=== PATIENT | male | born 1940 | race Caucasian/White ===

== ENCOUNTER 2016-11-12 13:58 | Inpatient (IN) | payer MEDICARE, OTHER ==
[~2016-11-12] VITALS: Ht 177.8 cm; Wt 103.8 kg
[2016-11-15] MEDS ORDERED: ATEN25TA PO (13:16)
[2016-11-15] MEDS ORDERED: VITA100064 PO (13:16)
[2016-11-15] MEDS ORDERED: NAPR220T95 PO (13:16)
[2016-11-15] MEDS ORDERED: MAGN250T2 PO (13:16)
[2016-11-15] MEDS ORDERED: METF500T PO (13:16)
--- NOTE | 2016-11-16 18:49 | MH ---
cc: KOLEJOSEFINAQUE DATE OF ADMISSION: 11/24/2016 ADMITTING DIAGNOSIS: Osteoarthritis of the right knee, varus deformity right knee and pain of the right knee. HISTORY The patient is a 76-year-old white male who has experienced at least a 3-year history of pain involving his right knee. He had noted the gradual onset of his symptoms unrelated to injury or unusual activity. He had been quite aware of a cracking and popping sensation of the right knee with intermittent radiation, proximal and distal orientation about his extremity. He had been conforming to an exercise program which included swimming, riding a bicycle and exercising at the gym which had been associated with ongoing pain of his right knee with a cramping sensation of his leg. He was taking ibuprofen for pain management with minimal benefit being noted. He had undergone initial evaluation with his primary care physician at which time x-ray studies did identify some degree of osteoarthritis about the knee joint. The patient was originally evaluated by the undersigned physician for his symptoms involving his right knee in December of 2015. At that time his x-ray studies did reveal degenerative changes especially involving the medial compartment. Findings and treatment options were reviewed. The patient was prescribed diclofenac as part of his continued conservative modalities. He was followed on an outpatient basis thereafter during which time he did note lingering symptoms about the right knee that tended to result in some degree of incapacitation with regards to his daily routine. He returned to the office in July of this year reporting that he was having ongoing pain about his right knee, for which he had received a cortisone injection in the past that did not prove to be of any benefit. He was now taking Aleve for pain management and wearing a support. His current x-ray studies revealed obvious degenerative changes throughout the medial compartment with near [id number] apposition associated with a varus deformity of approximately 10 degrees magnitude. Findings and treatment options were reviewed with the patient. At that time he did agree to a current course of therapy intervention for which a referral was made, and again was prescribed diclofenac 75 milligrams twice daily. Unfortunately he continued with pain about his right knee and returned to the office more recently indicating that he felt he had reached a point in time and was ready to proceed with a more definitive course of treatment. The involvement of total knee arthroplasty was outlined in detail with emphasis being made that the decision to proceed with surgery would be left entirely to the patient's discretion. Henry readily admitted that he had arrived at that point in time and requested to be scheduled for such treatment. In compliance with his wishes, he is currently being admitted in order the at total hip replacement be completed. PAST MEDICAL HISTORY, HOSPITALIZATIONS AND SURGERIES: 1. Bilateral carpal tunnel release. 2. Left inguinal herniorrhaphy. 3. Left reverse shoulder arthroplasty. 4. Left blepharoplasty. Medical illnesses: 1. Hypertension for which he takes atenolol 50 milligrams daily. 2. He was also recently diagnosed as being a borderline diabetic for which he has been prescribed metformin 500 milligrams twice daily. ALLERGIES: The patient indicates a possible drug allergy to Percocet which has been associated with some mild GI irritation. He has tolerated Vicodin without any adverse side effects prescribed. REVIEW OF SYSTEMS: He wears glasses for reading purposes. No headache, seizure or syncope. No sinus congestion or epistaxis. Auditory acuity intact. No tinnitus. No bleeding gums or dysphagia, no cough, shortness of breath, upper respiratory infection, pneumonia or tuberculosis. No angina or heart disease. He is medically managed for hypertension. His appetite is good. Bowel movements regular. No hepatitis, gallbladder disease, ulcers or hemorrhoids. No urinary tract infection. No kidney stones, no prostate disease. No history of fractures. 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 No psychiatric illness. His remaining review of systems is unremarkable and noncontributory. FAMILY HISTORY 7 years, this being a second marriage, 57 years of age indicated to be in good health. He has one daughter who has a history of COPD but otherwise seems to doing reasonably well. His family history is positive for hypertension, diabetes, heart disease, multiple myeloma and liver cancer. SOCIAL HISTORY The patient is employed with [employer]. He completed a postgraduate degree. He denies active use of tobacco for at least 47 years but had been less than a one-pack per day user for 10 years prior to that time. Ethanol consumption on a social basis to a moderate degree. PHYSICAL EXAMINATION Height 5 feet 10 inches, weight 215 pounds. An alert, oriented and responsive 76-year-old white male who sits quietly upon the examination table with no apparent distress. Head, ears, eyes, nose and throat: Pupils are equally round and reactive to light. Trace corneal arcus. Extraocular movements full. External nares clear. External auditory canals clear. Dental intact. Mucous membranes pink and moist. Pharynx clear. Neck: Supple. Active range of motion without significant pain. Carotid pulse palpable bilaterally. Trachea midline. Thyroid without enlargement. Lungs: Clear to auscultation and percussion. No CVA tenderness. No discomfort throughout the dorsal lumbar spine. Heart: Regular rhythm. No murmur or gallop. Abdomen: Soft, nontender. Bowel sounds present. Rectal: Per primary care physician. Extremities: Right knee, and obvious varus deformity with medial joint line tenderness. Apprehension and compression sign negative. Limited mobility in the 90 to 100 degree range of flexion with crepitation elicited. No collateral ligamentous instability. Mckayla test and drawer sign negative. Pivot shift and Geraldine sign positive for medial compartment pain. Straight-leg raising negative at 80 degrees. Distal sensory grossly intact. Mild antalgic gait. Neurologic: Cranial nerves II-XII grossly intact. IMPRESSION Osteoarthritis right knee, varus deformity right knee, pain right knee. PLAN Right total knee arthroplasty. The nature of the planned surgical procedure, the potential complications and risks associated, the expectations of surgery and the consent form have been thoroughly reviewed with the patient prior to his admission to the hospital. Henry has indicated his full understanding regarding all of the above and given consent to proceed with treatment as outlined. Medical evaluation and clearance for surgery will be completed by his primary care physician, Dr. Beaulieu. MD KALEY Doherty/ERICK /5:11 PM /5:41 PM
[2016-11-24] MEDS ORDERED: CHLORHEXIDINE GLUCONATE 2 % 1 PACK (2 CLOTHS) TOPICAL PRN (06:00)
[2016-11-24] MEDS ORDERED: POVIDONE IODINE 7.5% SCRUB 118 ML BOTTLE TOPICAL SCH (06:00)
[2016-11-24] MEDS ORDERED: POVIDONE IODINE 5% (ANTISEPSIS KIT) 4 APPLICATIONS EACH NARE PRN (06:00)
[2016-11-24] MEDS ORDERED: METOPROLOL TARTRATE 25 MG TAB PO PRN (06:00)
[2016-11-24] MEDS ORDERED: SODIUM CHLORID 0.9% 500 ML IV PRN (06:00)
[2016-11-24] MEDS ORDERED: ceFAZolin 2 GM PREMIX 50 ML IV SCH (06:00)
[2016-11-24] MEDS ORDERED: INSULIN HUMAN REGULAR 1,000 UNITS/10 ML VIAL SQ PRN (06:00)
[2016-11-24] MEDS ORDERED: LACTATED RINGER'S 1000 ML IV PRN (06:00)
[2016-11-24 06:02] VITALS: BP 134/82; PULSE 71; RESP 16; TEMP 99.1; O2SAT 97
[2016-11-24] MEDS ORDERED: ceFAZolin INJ 1,000 MG VIAL ONE (06:32)
[2016-11-24] MEDS ORDERED: MIDAZOLAM HCL 5 MG/5 ML VIAL ONE (06:36)
[2016-11-24] MEDS ORDERED: fentaNYL CITRATE 250 MCG/5 ML AMP ONE (06:36)
[2016-11-24] MEDS ORDERED: ACETAMINOPHEN 1000 MG/100 ML VIAL IV ONE (06:36)
[2016-11-24] MEDS ORDERED: DEXAMETHASONE SOD PHOS 4 MG/ML VIAL ONE (06:37)
[2016-11-24] MEDS ORDERED: FAMOTIDINE 20 MG/2 ML VIAL ONE (06:37)
[2016-11-24] MEDS ORDERED: TRANEXAMIC ACID 1 GM PRIOR TO PROCEDURE IV SCH ×2 (07:00)
[2016-11-24] MEDS ORDERED: BUPIVACAINE HCL PF 0.5% 30 ML VIAL NERV BLOCK ONE (08:35)
[2016-11-24] MEDS ORDERED: Post-op Orders (for Pharmacy) MISC XX ONE (09:23)
[2016-11-24] MEDS ORDERED: DO NOT ADM ANY ANTICOAGULANT DRUGS PRN (09:25)
[2016-11-24] MEDS ORDERED: *MEPERIDINE 25 MG INJ VIAL PERIprocedural Use ONLY ONE (09:42)
[2016-11-24] MEDS ORDERED: SODIUM CHLORIDE 0.9% FLUSH 10 ML FLUSH IV FLUSH PRN (09:45)
[2016-11-24] MEDS ORDERED: DOCUSATE SODIUM 100 MG CAP PO PRN (09:45)
[2016-11-24] MEDS ORDERED: ZOLPIDEM TARTRATE 5 MG TAB PO PRN (09:45)
[2016-11-24] MEDS ORDERED: MISCELLANEOUS PHARMACY INFORMATION XX ONE (09:45)
[2016-11-24] MEDS ORDERED: TRANEXAMIC ACID INJ 1,000 MG in SODIUM CHLORIDE 0.9% INJ 100 ML IV SCH (09:45)
[2016-11-24] MEDS ORDERED: NALOXONE HCL 0.4 MG/ML AMP IV PRN (09:45)
[2016-11-24] MEDS ORDERED: ACETAMINOPHEN/HYDROcodone 325 MG/5 MG TAB PO PRN (09:45)
[2016-11-24] MEDS ORDERED: ONDANSETRON HCL 4 MG/2 ML VIAL IVP PRN (09:45)
[2016-11-24] MEDS ORDERED: ACETAMINOPHEN 325 MG TAB PO PRN (09:45)
[2016-11-24] MEDS ORDERED: diphenhydrAMINE HCL 25 MG CAP PO PRN (09:45)
--- NOTE | 2016-11-24 09:53 | MP ---
cc: QUE GONZALEZ MD DATE OF SURGERY 11/24/2016 PREOPERATIVE DIAGNOSIS Osteoarthritis of the right knee, varus deformity right knee and pain of the right knee. POSTOPERATIVE DIAGNOSIS Osteoarthritis of the right knee, varus deformity right knee and pain of the right knee. PROCEDURE Right total knee arthroplasty SURGEON Que Gonzalez MD ANESTHESIA General endotracheal INDICATIONS A 76-year-old white male with a three year history of right knee pain of gradual onset unrelated to injury or unusual activity. He had been aware of a cracking and popping sensation of his right knee with intermittent radiation into the proximal and distal aspect of his extremity. He had been conforming to exercise activities which included swimming, riding a bicycle and exercising at the gym all of which has been associated with ongoing pain about his right knee with a cramping sensation as part of his symptoms. He had been taking ibuprofen for pain management with minimal benefit described. He had undergone initial evaluation with his primary care physician with x-ray studies identifying osteoarthritic changes about his right knee. He was later evaluated by the undersigned physician in December of this past year and at that time his x-ray studies did reveal degenerative changes being most pronounced about the medial compartment. Findings and treatment options were reviewed with the patient at that time and he was prescribed Diclofenac and continued with conservative modalities while being followed on outpatient basis. During this interval of time, he noted lingering symptoms about his right knee that tended to result in some degree of incapacitation regarding his daily routine. He returned to the office in July of this year reporting ongoing pain about his right knee for which he has received a cortisone injection in the past that did not prove to be of any appreciable benefit. He had began taking Aleve for pain management and wearing an orthotic support. His more current x-ray studies revealed obvious degenerative changes throughout the medial compartment with near reak-mt-[id number] apposition associated with a varus deformity of approximately 10 degrees magnitude. Findings and treatment options were again reviewed at that time. The patient was referred for a current course of therapy intervention, unfortunately, his knee symptoms persisted and he returned to the office more recently indicating that he felt he was in need of a more definitive course of treatment. The involvement of total knee arthroplasty was outlined in detail with emphasis being made that the decision to proceed with surgery would be left entirely to the patient's discretion. The patient readily admitted that he was at that point in time where he was ready to proceed accordingly and in compliance with his wishes he was scheduled for admission at this time in order that total knee replacement be completed. FORMAT Following the induction of satisfactory general anesthesia by endotracheal intubation as completed per the department of anesthesia, a tourniquet was established around the proximal portion of the right lower extremity. The extremity proper was isolated with a U-drape thereafter being prepped with Betadine solution and draped into a sterile field in the routine manner. Prior to initiation of the actual procedure, the standard time-out protocol was completed. All parameters were appropriately addressed and confirmed by operating room personnel. The extremity was elevated for approximately one minute and the tourniquet thus inflated to 250 mmHg pressure. A sharp skin incision was initiated midline over the anterior aspect of the knee and developed underlying subcutaneous tissue with hemostasis maintained by electrocautery. By deepening dissection, the anterior capsule was exposed. A medial capsulotomy completed and the patella subluxed in a lateral orientation. Examination of the joint space revealed severe degenerative changes throughout the medial compartment with complete erosion of articular cartilage and underlying subchondral bone exposed. The degenerative process extended into the patellofemoral articulation. A complex displaced tear of the medial meniscus was also identified. The articular surface of the patella was resected. The three holed guide was utilized for establishing post holes. Medial and lateral meniscus structures were sharply excised as was the anterior cruciate ligament. A centering hole was placed in the distal aspect of the femur allowing positioning of the intramedullary guide. The distal femoral cutting jig was attached and the distal femur resected. AP measurement noted 75 mm sizing to be appropriate. The matching cutting block was positioned. Anterior, posterior and chamfer cuts were completed. The tibial plateau was thereafter subluxed in an anterior orientation allowing positioning of the extramedullary guide. The tibial plateau was resected and measured with 83 mm sizing determined to be satisfactory. A trial reduction followed utilizing a 75 mm anatomic femoral component, an 83 mm tibial base with a 10 mm bearing insert. The knee was readily brought to full extension. There was no laxity to varus/valgus stress at both zero and 90 degrees flexed posture. Orientation was confirmed as being appropriate with measurement of the pelvic guide through the mechanical axis of the knee. A trial reduction followed utilizing a 37 mm standard patellar button. Once again, good tracking was demonstrated with no tendency toward subluxation. All trial components were thereafter removed. The remaining portion of the proximal tibia was prepared for insertion of the permanent component. The joint space was thoroughly lavaged with pulsating antibiotic solution. Hemostasis maintained by electrocautery. An autogenous bone plug was inserted into the distal femoral guide hole and thereafter a preparation of cobalt bone cement was utilized in inserting knee components in a sequential fashion which included an 83 mm fixed cruciate tibial plate to which a 10 mm Vanguard tibial bearing insert was secured with locking mendez. The 75 mm Vanguard femoral component was firmly seated onto the distal femur, excess cement being removed, the knee was brought to full extension and thereafter the 37 mm standard three post patellar button was attached and maintained in place with patellar clamp while cement hardening was completed. Final range of motion assessment noted good tracking and stability throughout the knee. Irrigation was repeated with hemostasis maintained. Autovac drain tubes were inserted through superior stab wounds. The capsule was repaired with 0 Vicryl suture. The remaining portion of the wound was closed in layers in the routine manner, skin margins being reapproximated with a running subcuticular 3-0 Vicryl suture over which Steri-Strips were applied. Xeroform gauze and a bulky dry sterile dressing were placed. The tourniquet was deflated after 54 minutes of tourniquet time. The extremity being supported in a canvas knee splint, anesthesia was discontinued, he was thereafter transferred to a hospital bed and returned to the recovery room in satisfactory condition having tolerated his operative procedure well. Estimated blood loss approximately 75-100 cc. 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 MD KALEY Doherty/AIDA /9:26 AM /9:37 AM
[2016-11-24] MEDS ORDERED: ePHEDrine/NS 25 MG/5 ML SYR IV ONE (09:56)
[2016-11-24] MEDS ORDERED: PROPOFOL 200 MG/20 ML AMP IV ONE (09:56)
[2016-11-24] MEDS ORDERED: PHENYLEPH/NS 1000 MCG/10 ML SYR IV ONE (09:57)
[2016-11-24] MEDS ORDERED: LACTATED RINGER'S 1000 ML INJ 1,000 ML IV ONE (09:57)
[2016-11-24] MEDS ORDERED: ONDANSETRON HCL 4 MG/2 ML VIAL IV PUSH ONE (09:57)
[2016-11-24] MEDS: DEXT 5%-NACL 0.45% 1000 ML INJ 1,000 ML IV SCH ×3 (10:00→19:30)
[2016-11-24] MEDS ORDERED: TRANEXAMIC ACID 1 GM POST-OP IV SCH ×2 (10:00)
[2016-11-24] MEDS ORDERED: *morphine SULFATE 8 MG/ML PERIprocedure ONLY ONE (10:07)
[2016-11-24] MEDS: MORPHINE SULFATE 30 MG/30 ML PCA IV SCH ×2 (10:46→19:34)
--- NOTE | 2016-11-24 10:55 | RADRPT ---
EXAM DATE/TIME: 11/24/2016 10:00 [facility] COMPARISON: No previous studies available for comparison. INDICATIONS : Post op right knee. MEDICAL HISTORY : None. SURGICAL HISTORY : None. ENCOUNTER: Initial ACUITY: 1 day PAIN SCORE: 8/10 LOCATION: Right knee FINDINGS: The patient is status post right total knee arthroplasty. The tibial and femoral components appear we ll seated. Surgical drain is present. Splint in place. CONCLUSION: Postoperative changes right knee arthroplasty. Jean Paul Arriola MD on November 24, 2016 at 10:52 Board Certified Radiologist. This report was verified electronically.
[2016-11-24 11:36] VITALS: BP 114/68; PULSE 79; RESP 17; TEMP 96.7; O2SAT 97
[2016-11-24] MEDS: PCA - TOTAL MG MORPHINE DELIVERED PER SHIFT SCH ×2 (14:00→22:12)
[2016-11-24 15:40] VITALS: BP 122/80; PULSE 90; RESP 17; TEMP 96.7; O2SAT 97
[2016-11-24 15:52] VITALS: O2SAT 95
[2016-11-24] MEDS: SODIUM CHLORIDE 0.9% FLUSH 10 ML FLUSH IV FLUSH SCH (19:30)
[2016-11-24 20:05] VITALS: BP 143/71; PULSE 95; RESP 19; TEMP 96.7; O2SAT 97
[2016-11-25] VITALS (8 sets, daily range): BP systolic 136–174; BP diastolic 61–91; PULSE 74–106; RESP 17–18; TEMP 96.7–99.6; O2SAT 92–99
[2016-11-25] MEDS: MORPHINE SULFATE 30 MG/30 ML PCA IV SCH ×2 (01:54→11:36)
[2016-11-25] MEDS: PCA - TOTAL MG MORPHINE DELIVERED PER SHIFT SCH ×3 (05:40→21:45)
[2016-11-25 05:48] LABS: HEMATOCRIT 35.1 % (39.0-51.0); REVIEW FLAG FINAL
[2016-11-25] MEDS ORDERED: ASPI325T PO (06:16)
[2016-11-25] MEDS ORDERED: HYDR-3516 PO (06:16)
--- NOTE | 2016-11-25 06:18 | HHI.FF ---
Face to Face Verification Diagnosis: (1) DJD (degenerative joint disease) of knee Physical Therapy Gait training Knee: Total knee, Protocol: Right, Full weight bearing Right LE Weight Bearing: WB as tolerated Right LE Range of Motion: Active ROM Nursing Dressing Changes: Daily dressing change I have seen patient Henry Farnsworth on 11/25/16. My clinical findings support the need for the requested home health care services because: Limited ability to care for self High risk of falls I certify that my clinical findings support that this patient is homebound because: Post-op weakness Unsteady gait/balance Unsafe to leave home unassisted Ej Gonzalez MD November 25, 2016 06:18
[2016-11-25] MEDS ORDERED: walker with wheels (06:23)
[2016-11-25] MEDS: SODIUM CHLORIDE 0.9% FLUSH 10 ML FLUSH IV FLUSH SCH ×2 (08:05→21:00)
[2016-11-25] MEDS: RIVAROXABAN 10 MG TAB PO SCH (08:05)
--- NOTE | 2016-11-25 08:20 | PD.CONS ---
History of Present Illness Service Family Consult Requested By Dr. Gonzalez Reason for Consult Medical management Primary Care Physician Cotsa Beaulieu DO Diagnoses: (1) DJD (degenerative joint disease) of knee History of Present Illness Patient is a 76 year old male admitted to Dr. Gonzalez for a right total knee arthroplasty for osteoarthritis, varus deformity of right knee, and pain. He has been experiencing continued increasing pain in right knee for over 3 years. He has a past medical history of HTN and also diagnosed as a borderline diabetic. Review of Systems Constitutional: DENIES: Fatigue, Fever Respiratory: DENIES: Cough, Sputum production, Shortness of breath Gastrointestinal: DENIES: Black stools, Constipation, Diarrhea, Nausea Genitourinary: DENIES: Urinary frequency, Urinary incontinence Musculoskeletal: COMPLAINS OF: Joint pain Neurologic: DENIES: Headache Psychiatric: DENIES: Anxiety, Confusion Past Family Social History Allergies: Coded Allergies: No Known Allergies (Unverified , 11/24/16) Past Medical History HTN Borderline diabetes Osteoarthritis Past Surgical History Bilateral carpal tunnel surgery Left inguinal herniorrhaphy left reverse shoulder arthroplasty left blepharoplasty Active Ordered Medications Current Medications Medications (Trade) Dose Ordered Sig/Daryl Route Start Time Stop Time Status Last Admin Povidone Iodine 1 applic 1 applic ONCE TOPICAL 11/24/16 06:00 11/27/16 05:59 11/24/16 05:55 Lactated Ringer's 1,000 ml @ 30 mls/hr Q24H PRN IV 11/24/16 06:00 11/27/16 05:59 11/24/16 05:50 (NS 500 ml Inj) 500 ml @ 30 mls/hr [id number] PRN IV 11/24/16 06:00 11/27/16 05:59 (NS Flush) 2 ml UNSCH PRN IV FLUSH 11/24/16 09:45 (NS Flush) 2 ml BID IV FLUSH 11/24/16 21:00 (Xarelto) 10 mg Q24H PO 11/25/16 09:00 11/25/16 08:05 ([place] 5-325 Mg) 1 tab Q4H PRN PO 11/24/16 09:45 ([place] 5-325 Mg) 2 tab Q4H PRN PO 11/24/16 09:45 (Tylenol) 650 mg Q6H PRN PO 11/24/16 09:45 (Zofran Inj) 4 mg Q6H PRN IVP 11/24/16 09:45 (Colace) 100 mg BID PRN PO 11/24/16 09:45 (Ambien) 5 mg HS PRN PO 11/24/16 09:45 (Narcan Inj) 0.4 mg UNSCH PRN IV 11/24/16 09:45 11/26/16 09:44 (Benadryl) 25 mg Q6H PRN PO 11/24/16 09:45 11/26/16 09:44 (Morphine 1 Mg/ ml MILL OPERATOR HELPER) 30 mg UNSCH IV 11/24/16 09:45 11/26/16 09:44 11/25/16 01:54 MILL OPERATOR HELPER Dosage Infused (Pha) 1 Q8HR .XX 11/24/16 14:00 11/26/16 09:44 11/25/16 05:40 Miscellaneous Information ALL NURSING DEPARTME... 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 Physical Exam Vital Signs Vital Signs Date Time Temp Pulse Resp B/P Pulse Ox O2 Delivery O2 Flow Rate FiO2 11/25/16 05:40 16 11/25/16 04:20 96.7 99 18 174/91 96 11/25/16 01:54 18 11/25/16 00:35 99.4 89 18 154/81 99 11/24/16 22:12 16 11/24/16 20:05 96.7 95 19 143/71 97 11/24/16 19:58 18 11/24/16 19:34 18 11/24/16 15:52 95 Nasal Cannula 3.00 11/24/16 15:40 96.7 90 17 122/80 97 11/24/16 11:36 96.7 79 17 114/68 97 11/24/16 11:00 97.9 77 20 157/71 95 Nasal Cannula 3 11/24/16 10:46 20 11/24/16 10:45 77 20 157/71 95 Nasal Cannula 3 11/24/16 10:30 77 20 158/70 93 Nasal Cannula 3 11/24/16 10:15 79 20 159/73 90 Nasal Cannula 3 11/24/16 10:00 79 20 190/86 97 Nasal Cannula 3 11/24/16 09:45 82 20 185/101 95 Nasal Cannula 3 11/24/16 09:28 98.1 77 20 128/70 97 Nasal Cannula 3 Physical Exam GENERAL: This is a well-nourished, well-developed patient, in no apparent distress. SKIN: Cool and dry dane wrap on right knee CARDIOVASCULAR: Regular rate and rhythm without murmurs, gallops, or rubs. RESPIRATORY: Clear to auscultation. Breath sounds equal bilaterally. No wheezes , rales, or rhonchi. GASTROINTESTINAL: Abdomen soft, non-tender, nondistended. No hepato-splenomegaly , or palpable masses. No guarding. MUSCULOSKELETAL: Right knee with dane wrap on elevated on pillow. Negative Homans sign bilaterally. NEUROLOGICAL: Awake and alert. . Normal speech. Laboratory Laboratory Tests Test 11/25/16 05:08 Hemoglobin 11.8 Hematocrit 35.1 Result Diagram: 11/25/16 0508 Imaging Last 72 hours Impressions Knee X-Ray 11/24/16 0933 Signed Impressions: Service Date/Time: Thursday, November 24, 2016 10:00 - CONCLUSION: Postoperative changes right knee arthroplasty. Jean Paul Arriola MD Assessment and Plan Problem List: (1) Status post total right knee replacement Status: Acute Plan: Patient POD #1. On MILL OPERATOR HELPER morphine for pain with good relief. On Xarelto for DVT prophylaxis (2) HTN (hypertension) Status: Acute Plan: Blood pressure elevated resumed home dose of atenolol and IVF's discontinued. (3) Borderline diabetes mellitus Status: Acute Plan: BS ordered AC and HS and sliding scale. Assessment and Plan Assessment and plan discussed with Dr. Beaulieu Discussed Condition With Nursing Discharge Planning Home with [facility] Physician Attestation I and the ONION FARMER have both examined this patient and reviewed this note and I agree with these findings and plan of care. Costa Beaulieu. Roseann Bhagat November 25, 2016 08:20
[2016-11-25] MEDS ORDERED: DEXTROSE 50% IN WATER 50 ML VIAL(D50) IV PRN (08:30)
[2016-11-25] MEDS ORDERED: GLUCAGON 1 MG/ML VIAL OTHER PRN (08:30)
[2016-11-25] MEDS: DOCUSATE SODIUM 50 MG/SENNA 8.6 MG TAB PO SCH (09:00)
[2016-11-25] MEDS: ATENOLOL 25 MG TAB PO SCH (09:00)
[2016-11-25] MEDS: INSULIN ASPART SUPPLEMENTAL SCALE SQ SCH ×3 (10:37→21:45)
[2016-11-26] VITALS (8 sets, daily range): BP systolic 116–148; BP diastolic 62–71; PULSE 63–76; RESP 14–19; TEMP 96.4–98.8; O2SAT 93–98
[2016-11-26] MEDS: PCA - TOTAL MG MORPHINE DELIVERED PER SHIFT SCH (06:47)
[2016-11-26] MEDS: INSULIN ASPART SUPPLEMENTAL SCALE SQ SCH ×4 (06:49→21:23)
[2016-11-26 08:05] LABS: HEMATOCRIT 34.6 % (39.0-51.0); MEAN CELL VOLUME 93.6 FL (80.0-100.0); MEAN CORPUSCULAR HEMOGLOBIN 31.1 PG (27.0-34.0); MEAN CORPUSCULAR HGB CONC 33.2 % (32.0-36.0); PLATELET COUNT 185 TH/MM3 (150-450); REVIEW FLAG FINAL; WHITE BLOOD COUNT 13.7 TH/MM3 (4.0-11.0)
--- NOTE | 2016-11-26 08:13 | HHI.PR ---
Subjective Remarks Patient seen at bedside. Denies and CP or SOB. Drg on right knee. CLINICAL INFORMATICIST morphine for pain which is well controlled Objective Vital Signs Date Time Temp Pulse Resp B/P Pulse Ox O2 Delivery O2 Flow Rate FiO2 11/26/16 06:47 17 11/26/16 04:25 96.4 71 17 148/67 97 11/26/16 00:25 98.4 72 17 135/65 97 11/25/16 21:45 18 11/25/16 19:45 99.6 79 17 136/61 95 11/25/16 19:32 95 11/25/16 18:39 Room Air 11/25/16 15:53 98 Nasal Cannula 2.00 11/25/16 15:47 99.4 77 18 138/76 95 11/25/16 12:03 98.0 74 18 154/70 98 I/O 11/25/16 11/25/16 11/25/16 11/26/16 11/26/16 11/26/16 07:00 15:00 23:00 07:00 15:00 23:00 Intake Total 942 ml 960 ml 1624 ml 511 ml Output Total 480 ml 190 ml 610 ml Balance 462 ml 960 ml 1434 ml -99 ml Intake Oral 240 ml 960 ml 480 ml 240 ml IV Total 702 ml 1144 ml 271 ml Output Urine Total 400 ml 550 ml Drainage Total 80 ml 190 ml 60 ml # Voids 4 2 1 # Bowel Movements 0 0 0 0 Result Diagram: 11/26/16 0646 Imaging Last 72 hours Impressions Knee X-Ray 11/24/16 0933 Signed Impressions: Service Date/Time: Thursday, November 24, 2016 10:00 - CONCLUSION: Postoperative changes right knee arthroplasty. Jean Paul Arriola MD Procedures POD #2 from a right TKA Objective Remarks GENERAL: Alert and cooperative SKIN: Warm and dry. Drg on right knee HEAD: Normocephalic. EYES: No scleral icterus. No injection or drainage. NECK: Supple, trachea midline. No JVD or lymphadenopathy. CARDIOVASCULAR: Regular rate and rhythm without murmurs, gallops, or rubs. RESPIRATORY: Breath sounds equal bilaterally. No accessory muscle use. GASTROINTESTINAL: Abdomen soft, non-tender, nondistended. MUSCULOSKELETAL: No cyanosis. Right knee with minimal swelling BACK: Nontender without obvious deformity. No CVA tenderness. Medications and IVs Current Medications Medications (Trade) Dose Ordered Sig/Daryl Route Start Time Stop Time Status Last Admin Povidone Iodine 1 applic 1 applic ONCE TOPICAL 11/24/16 06:00 11/27/16 05:59 11/24/16 05:55 Lactated Ringer's 1,000 ml @ 30 mls/hr Q24H PRN IV 11/24/16 06:00 11/27/16 05:59 11/24/16 05:50 (NS 500 ml Inj) 500 ml @ 30 mls/hr [id number] PRN IV 11/24/16 06:00 11/27/16 05:59 (NS Flush) 2 ml UNSCH PRN IV FLUSH 11/24/16 09:45 (NS Flush) 2 ml BID IV FLUSH 11/24/16 21:00 (Xarelto) 10 mg Q24H PO 11/25/16 09:00 11/25/16 08:05 ([place] 5-325 Mg) 1 tab Q4H PRN PO 11/24/16 09:45 ([place] 5-325 Mg) 2 tab Q4H PRN PO 11/24/16 09:45 (Tylenol) 650 mg Q6H PRN PO 11/24/16 09:45 (Zofran Inj) 4 mg Q6H PRN IVP 11/24/16 09:45 (Ambien) 5 mg HS PRN PO 11/24/16 09:45 (Narcan Inj) 0.4 mg UNSCH PRN IV 11/24/16 09:45 11/26/16 09:44 (Benadryl) 25 mg Q6H PRN PO 11/24/16 09:45 11/26/16 09:44 (Morphine 1 Mg/ ml CLINICAL INFORMATICIST) 30 mg UNSCH IV 11/24/16 09:45 11/26/16 09:44 11/25/16 11:36 CLINICAL INFORMATICIST Dosage Infused (Pha) 1 Q8HR .XX 11/24/16 14:00 11/26/16 09:44 11/26/16 06:47 (Tenormin) 75 mg DAILY PO 11/25/16 09:00 11/25/16 09:00 (Agueda-Colace) 2 tab DAILY PO 11/25/16 09:00 11/25/16 09:00 (D50w (Vial) Inj) 50 ml UNSCH PRN IV 11/25/16 08:30 (Glucagon Inj) 1 mg UNSCH PRN OTHER 11/25/16 08:30 Assessment and Plan Problem List: (1) Status post total right knee replacement Status: Acute Plan: Patient POD #2. KRISTAL wrap removed drg intact. On CLINICAL INFORMATICIST morphine for pain with good relief. On Xarelto for DVT prophylaxis (2) HTN (hypertension) Status: Acute Plan: Blood pressure elevated resumed home dose of atenolol and IVF's discontinued. (3) Borderline diabetes mellitus Status: Acute Plan: BS AC and HS well controlled. Sliding scale PRN Assessment and Plan Assessment and plan discussed with Dr. Beaulieu Discussed Condition With Nursing Discharge Planning Home with [facility] Physician Attestation I and the DATA SERVICES DEVELOPER have both examined this patient and [id number] this note and I agree with these findings and plan of care. Roseann Castillo November 26, 2016 08:13
[2016-11-26 08:18] LABS: ANION GAP 8 MEQ/L (5-15); AST (GOT) 32 U/L (15-37); BICARBONATE 27.7 MEQ/L (21.0-32.0); BLOOD UREA NITROGEN 11 MG/DL (7-18); CHLORIDE 102 MEQ/L (98-107); GLOMERULAR FILTRATION RATE 95 ML/MIN (>89); POTASSIUM 4.2 MEQ/L (3.5-5.1); SODIUM (NA) 138 MEQ/L (136-145)
[2016-11-26 08:23] LABS: ALKALINE PHOSPHATASE 68 U/L (45-117); ALT (GPT) 21 U/L (12-78); HDL CHOLESTEROL 54.7 MG/DL (40.0-60.0); LDL CHOLESTEROL 35 MG/DL (0-99); TOTAL BILIRUBIN ADULT 0.9 MG/DL (0.2-1.0)
[2016-11-26] MEDS: SODIUM CHLORIDE 0.9% FLUSH 10 ML FLUSH IV FLUSH SCH ×2 (09:00→21:22)
[2016-11-26 11:14] LABS: HEMOGLOBIN A1a 1.1 %; HEMOGLOBIN A1b 0.9 %; HEMOGLOBIN Ao 85.2 %; HEMOGLOBIN F 0.9 %; HEMOGLOBIN LA1C 2.3 %; HEMOGLOBIN P3 5.1 %
[2016-11-26] MEDS: RIVAROXABAN 10 MG TAB PO SCH (11:14)
[2016-11-26] MEDS: DOCUSATE SODIUM 50 MG/SENNA 8.6 MG TAB PO SCH (11:14)
[2016-11-26] MEDS: ATENOLOL 25 MG TAB PO SCH (11:14)
[2016-11-26] MEDS: ACETAMINOPHEN/HYDROcodone 325 MG/5 MG TAB PO PRN ×3 (13:30→21:31)
--- NOTE | 2016-11-26 23:13 | MD ---
cc: QUE WHITE GERALD R. D.O. ADMISSION DATE: 11/24/2016 DISCHARGE DATE: 11/28/15 [place] Visit Search.Discharge Date ADMISSION DIAGNOSIS Osteoarthritis of the right knee, varus deformity right knee and pain of the right knee DISCHARGE DIAGNOSIS Osteoarthritis of the right knee, varus deformity right knee and pain of the right knee HISTORY A 76-year-old white male with a three-year history of right knee pain of gradual onset unrelated to injury or unusual activity. He had been aware of a cracking and popping sensation about the right knee and radiation both proximally and distally in this extremity. He had conformed to an exercise program which included swimming, riding a bicycle and exercising at the gym with ongoing pain of the right knee being associated. He was taking ibuprofen for pain management with minimal benefit described. He had undergone initial evaluation with his primary care physician with x-ray studies identifying osteoarthritis about the right knee. The patient was originally evaluated by the undersigned physician in December of 2015 and at that time his x-ray studies confirmed degenerative changes especially involving the medial compartment. The patient was prescribed diclofenac for continued conservative management while being followed on outpatient basis. He described lingering symptoms about his right knee that tended to result in some degree of incapacitation with regards to his daily routine. He returned to the office in July of this year reporting ongoing pain about his right knee for which he was treated with a cortisone injection that unfortunately did not prove to be of any long-term benefit. He was also taking Aleve for pain management. His current x-ray studies revealed obvious degenerative changes throughout the medial compartment with near [id number] apposition associated with a varus deformity of 10 degrees magnitude. Findings and treatment options were again reviewed. At that time, the patient did consent to proceeding with therapy intervention for which a referral was made and he was prescribed diclofenac 75 mg twice daily. Unfortunately, his right knee symptoms persisted and he returned to the office more recently indicating that he felt he was in need of a more definitive course of treatment. The involvement of total knee arthroplasty was outlined in detail with emphasis being made that the decision to proceed with surgery would be left entirely to the patient's discretion. The patient readily admitted that he was at that point in time where he was ready for such treatment and, in compliance with his wishes, he was admitted at this time in order that total knee replacement be completed. His physical examination at the time of admission revealed an obvious varus deformity about the right knee with medial joint line tenderness. Apprehension and compression sign were negative. There was limited mobility in the 90-100 degree range of flexion with crepitation elicited. No collateral ligamentous instability. Mckayla test and drawer sign negative. Pivot shift and Geraldine sign positive for medial compartment pain. Straight-leg raising was negative 80 degrees. Distal sensory grossly intact. Antalgic gait. HOSPITAL COURSE Prior to admission to the hospital, the patient had undergone medical evaluation and clearance for surgery as completed by his primary care physician, Dr. Sony Beaulieu. He was taken to the operating room on November 24, 2016 and, on that date, underwent a right total knee arthroplasty completed in an uncomplicated manner. The patient was noted to have tolerated his operative procedure well and his postoperative course stable thereafter. He was progressively mobilized under the guidance of physical therapy being permitted weightbearing to tolerance about the right lower extremity. Follow up examination of his surgical wound noted to be intact healing favorably, no evidence of infection. Medical followup per the hospitalist service. DVT prophylaxis initiated. surgical services tech consulted to assist with discharge planning. Hemoglobin/hematocrit assessment postoperatively was 11.8 and 35.1 respectively. The patient had indicated his desire to be discharged home and continued his rehabilitation on an outpatient basis. Plans were finalized in this regard and, pending medical clearance, he was scheduled for discharge on the third postoperative day at which time he was noted to be making favorable progress with regards to his rehab program. He was scheduled to be seen in office followup in approximately 4 weeks. His condition at the time of discharge stable. Prognosis favorable. DISCHARGE MEDICATIONS 1. Hydrocodone 5/325, #60 2. Aspirin 325 mg 1 tablet twice daily for 3 weeks #40. MD KALEY Doherty/ /6:24 AM /10:59 PM
[2016-11-27] MEDS: ACETAMINOPHEN/HYDROcodone 325 MG/5 MG TAB PO PRN ×3 (04:44→14:07)
[2016-11-27] MEDS: INSULIN ASPART SUPPLEMENTAL SCALE SQ SCH ×2 (06:05→11:00)
[2016-11-27 07:36] VITALS: BP 144/67; PULSE 68; RESP 16; TEMP 98.1; O2SAT 99
[2016-11-27] MEDS: DOCUSATE SODIUM 50 MG/SENNA 8.6 MG TAB PO SCH (09:10)
[2016-11-27] MEDS: ATENOLOL 25 MG TAB PO SCH (09:10)
[2016-11-27 09:11] VITALS: O2SAT 96
[2016-11-27] MEDS: RIVAROXABAN 10 MG TAB PO SCH (09:11)
[2016-11-27] MEDS: SODIUM CHLORIDE 0.9% FLUSH 10 ML FLUSH IV FLUSH SCH (09:15)
--- NOTE | 2016-11-27 09:41 | HHI.PR ---
Subjective Remarks s/p r TKA Objective Vital Signs Date Time Temp Pulse Resp B/P Pulse Ox O2 Delivery O2 Flow Rate FiO2 11/27/16 07:36 98.1 68 16 144/67 99 11/26/16 23:32 96.7 63 19 136/63 98 11/26/16 19:40 98.6 66 19 127/62 97 11/26/16 18:54 Room Air 11/26/16 16:00 98.8 64 14 116/64 98 11/26/16 12:02 93 11/26/16 12:00 98.6 76 16 141/71 96 I/O 11/26/16 11/26/16 11/26/16 11/27/16 11/27/16 11/27/16 07:00 15:00 23:00 07:00 15:00 23:00 Intake Total 511 ml 720 ml 360 ml 360 ml Output Total 610 ml 800 ml 250 ml 600 ml Balance -99 ml -80 ml 110 ml -240 ml Intake Oral 240 ml 720 ml 360 ml 360 ml IV Total 271 ml Output Urine Total 550 ml 800 ml 250 ml 600 ml Drainage Total 60 ml # Voids 1 6 1 # Bowel Movements 0 0 0 Result Diagram: 11/26/1646 11/26/1646 Objective Remarks GENERAL: SKIN: Warm and dry. HEAD: Atraumatic. Normocephalic. EYES: Pupils equal and round. No scleral icterus. No injection or drainage. ENT: No nasal bleeding or discharge. Mucous membranes pink and moist. NECK: Trachea midline. No JVD. CARDIOVASCULAR: Regular rate and rhythm. RESPIRATORY: No accessory muscle use. Clear to auscultation. Breath sounds equal bilaterally. GASTROINTESTINAL: Abdomen soft, non-tender, nondistended. Hepatic and splenic margins not palpable. MUSCULOSKELETAL: Extremities without clubbing, cyanosis, or edema. No obvious deformities covering inplace r TKA minimal drainage. NEUROLOGICAL: Awake and alert. No obvious cranial nerve deficits. Motor grossly within normal limits. Five out of 5 muscle strength in the arms and legs. Normal speech. PSYCHIATRIC: Appropriate mood and affect; insight and judgment normal. Medications and IVs Inpatient Medications Acetaminophen 650 mg 650 mg Q6H PRN PO Temp > 101; Start 11/24/16 at 09:45 Acetaminophen/ Hydrocodone Bitart (Sebastian 5-325 Mg) 2 tab Q4H PRN PO PAIN SCALE 5 TO 10 Last administered on 11/27/16 09:14; Start 11/24/16 at 09:45 Atenolol (Tenormin) 75 mg DAILY PO Last administered on 11/27/16 09:10; Start 11/25/16 at 09:00 Cefazolin Sodium/ Dextrose 50 ml @ 100 mls/hr THEATRICAL DRESSER IV Last administered on 11/24/16 06:00; Start 11/24/16 at 06:00; Stop 11/27/16 at 05:59; Status DC Cefazolin Sodium/ Sodium Chloride (Ancef Inj/NS Inj) 100 ml @ 200 mls/hr Q6H IV Last administered on 11/25/16 01:51; Start 11/24/16 at 14:00; Stop at 02:29; Status DC Chlorhexidine Gluconate (Chlorhexidine 2% Cloth) 3 pack THEATRICAL DRESSER PRN TOPICAL SEE LABEL COMMENTS Last administered on 11/24/16 05:30; Start 11/24/16 at 06:00 ; Stop 11/27/16 at 05:59; Status DC Dextrose (D50w (Vial) Inj) 50 ml UNSCH PRN IV HYPOGLYCEMIA-SEE COMMENTS; Start 11/25/16 at 08:30 Dextrose/Sodium Chloride (D5W-1/2 NS 1000 ml Inj) 1,000 ml @ 125 mls/hr Q8H IV Last administered on 11/24/16 19:30; Start 11/24/16 at 09:33; Stop 11/25/16 at 08:05; Status DC Diphenhydramine HCl (Benadryl) 25 mg Q6H PRN PO ITCHING; Start 11/24/16 at 09: 45; Stop 11/26/16 at 09:44; Status DC Docusate Sodium (Colace) 100 mg BID PRN PO constipation; Start 11/24/16 at 09: 45; Stop 11/25/16 at 08:07; Status DC Glucagon (Glucagon Inj) 1 mg UNSCH PRN OTHER HYPOGLYCEMIA-SEE COMMENTS; Start 11/25/16 at 08:30 Insulin Aspart (NovoLOG SUPPLEMENTAL SCALE) 1 ACHS SLIDING SCALE SQ Last administered on 11/26/16 11:24; Start 11/25/16 at 11:00 Insulin Human Regular (NovoLIN R INJ) See Protocol Table ... THEATRICAL DRESSER PRN SQ SEE PROTOCOL TABLE; Start 11/24/16 at 06:00; Stop 11/27/16 at 05:59; Status DC Lactated Ringer's 1,000 ml @ 30 mls/hr Q24H PRN IV SEE LABEL COMMENTS Last administered on 11/24/16 05:50; Start 11/24/16 at 06:00; Stop 11/27/16 at 05:59 ; Status DC Metoprolol Tartrate (Lopressor) 25 mg THEATRICAL DRESSER PRN PO SEE LABEL COMMENTS Last administered on 11/24/16 06:00; Start 11/24/16 at 06:00; Stop 11/25/16 at 08:04 ; Status DC Miscellaneous Information ALL NURSING DEPARTME... UNSCH PRN .XX SEE LABEL COMMENTS; Start 11/24/16 at 09:25; Stop 11/25/16 at 09:24; Status DC Miscellaneous Information (Post-op Orders (for Pharmacy)) STAT ONCE XX ; Start 11/24/16 at 09:23; Stop 11/24/16 at 10:46; Status DC Miscellaneous Medication ([facility] Pharmacy Information) ONCE ONCE XX ; Start at 09:45; Stop 11/24/16 at 10:51; Status DC Morphine Sulfate (Morphine 1 Mg/ ml WRONG ADDRESS CLERK) 30 mg UNSCH IV Last administered on 11:36; Start 11/24/16 at 09:45; Stop 11/26/16 at 09:44; Status DC Naloxone HCl (Narcan Inj) 0.4 mg UNSCH PRN IV RESPIRATORY RATE LESS THAN 10; Start 11/24/16 at 09:45; Stop 11/26/16 at 09:44; Status DC Ondansetron HCl (Zofran Inj) 4 mg Q6H PRN IVP NAUSEA OR VOMITING; Start at 09:45 WRONG ADDRESS CLERK Dosage Infused (Pha) 1 1 Q8HR .XX RESPIRATORY RATE LESS THAN 10 Last administered on 11/26/16 06:47; Start 11/24/16 at 14:00; Stop 11/26/16 at 09:44 ; Status DC Povidone Iodine (Betadine 5% Antisepsis Kit) 1 applic THEATRICAL DRESSER PRN EACH NARE SEE LABEL COMMENTS Last administered on 11/24/16 05:55; Start 11/24/16 at 06:00 ; Stop 11/27/16 at 05:59; Status DC Povidone Iodine 1 applic 1 applic ONCE TOPICAL Last administered on 11/24/16 05:55; Start 11/24/16 at 06:00; Stop 11/27/16 at 05:59; Status DC Rivaroxaban (Xarelto) 10 mg Q24H PO Last administered on 11/27/16 09:11; Start 11/25/16 at 09:00 Senna/Docusate Sodium (Agueda-Colace) 2 tab DAILY PO Last administered on 09:10; Start 11/25/16 at 09:00 Sodium Chloride (NS 500 ml Inj) 500 ml @ 30 mls/hr [id number] PRN IV SEE LABEL COMMENTS; Start 11/24/16 at 06:00; Stop 11/27/16 at 05:59; Status DC Sodium Chloride (NS Flush) 2 ml UNSCH PRN IV FLUSH FLUSH AFTER USING IV ACCESS ; Start 11/24/16 at 09:45 Sodium Chloride 2 ml 2 ml BID IV FLUSH Last administered on 11/27/16 09:15; Start 11/24/16 at 21:00 Tranexamic Acid 1000 mg/Sodium Chloride 110 ml @ 220 mls/hr ONCE IV Last administered on 11/24/16 10:33; Start 11/24/16 at 10:00; Stop 11/24/16 at 16:00 ; Status DC Tranexamic Acid/ Sodium Chloride (Cyklokapron Inj/ NS Inj) 110 ml @ 200 mls/hr UNSCH IV ; Start 11/24/16 at 09:45; Stop 11/24/16 at 10:44; Status DC Zolpidem Tartrate (Ambien) 5 mg HS PRN PO SLEEP; Start 11/24/16 at 09:45 Assessment and Plan Problem List: (1) Status post total right knee replacement Status: Acute Plan: doing well will have op pt when dc home (2) HTN (hypertension) Status: Acute Plan: controlled Assessment and Plan sp tka djd htn all stable Discharge Planning home with home health Costa Beaulieu DO November 27, 2016 09:40
[2016-11-27 11:45] VITALS: BP 125/66; PULSE 66; RESP 16; TEMP 98.4; O2SAT 97
[2016-11-27 12:00] VITALS: O2SAT 97
== END 2016-11-27 15:54 | disposition home health service (06) | DRG 470 ==
LOC: HSDI 11-24 05:21 → N06A 11-24 11:21
PROVIDERS: ADMIT Orthopaedic Surgery; ATTEND Orthopaedic Surgery
PROC: 0SRC0J9 Replacement of Right Knee Joint with Synthetic Substitute, Cemented, Open Approach (ICD-10-PCS; principal; 2016-11-24 06:45)
DX: M17.11 Unilateral primary osteoarthritis, right knee (principal); E11.9 Type 2 diabetes mellitus without complications; I10 Essential (primary) hypertension; M21.161 Varus deformity, not elsewhere classified, right knee; Z79.84 Long term (current) use of oral hypoglycemic drugs
CPT/HCPCS: 73560; 80053; 80061; 82306; 82948; 83036; 85014; 85018; 85027; 86850; 86900; 86901; 94150; C1776; J0131; J0690; J1100; J1815; J2175; J2250; J2270; J2370; J2405; J3010; J7120; L1830

== ENCOUNTER → 2016-11-15 | Outpatient (CLI) | payer MEDICARE, OTHER ==
[~2016-11-15] MED LIST: ASPI325T PO; ATEN-102 PO; ATEN25TA PO; HYDR-3516 PO; MAGN250T2 PO; METF500T PO; NAPR220T95 PO; PERC5TAB12 PO; VITA100064 PO; XARE10TA PO; walker with wheels
[2016-11-15 13:52] LABS: AUTOMATED NEUTROPHIL # 5.7 TH/MM3 (1.8-7.7); BASOPHIL # 0.1 TH/MM3 (0-0.2); BASOPHIL % 0.8 % (0.0-2.0); EOSINOPHIL # 0.2 TH/MM3 (0-0.4); EOSINOPHIL % 1.9 % (0.0-4.0); HEMATOCRIT 45.2 % (39.0-51.0); HEMO FLAGS DIFF FINAL; LYMPH % 22.9 % (9.0-44.0); MEAN CELL VOLUME 92.9 FL (80.0-100.0); MEAN CORPUSCULAR HEMOGLOBIN 32.2 PG (27.0-34.0); MEAN CORPUSCULAR HGB CONC 34.7 % (32.0-36.0); MONO % 11.1 % (0.0-8.0); NEUT % 63.3 % (16.0-70.0); PLATELET COUNT 254 TH/MM3 (150-450); RED BLOOD COUNT 4.87 MIL/MM3 (4.50-5.90); RED CELL DISTRIBUTION WIDTH 13.7 % (11.6-17.2); WHITE BLOOD COUNT 8.9 TH/MM3 (4.0-11.0)
[2016-11-15 13:54] LABS: BLOOD, URINE NEG (NEG); COMMENT (UR) CULT NOT INDICATED; CULTURE IF INDICATED CULT NOT INDICATED; GLUCOSE,URINE NEG (NEG); KETONE, URINE NEG (NEG); MUCUS URINE FEW /lpf (OCC); NITRITE,URINE NEG (NEG); URINE COLOR YELLOW (YELLW/STRAW)
[2016-11-15 14:10] LABS: PROTHROMBIN TIME - PATIENT 10.5 SEC (9.8-11.6)
--- NOTE | 2016-11-15 14:12 | RADRPT ---
EXAM DATE/TIME: 11/15/2016 13:34 [facility] COMPARISON: SHOULDER LEFT (1 VW), November 21, 2012, 11:40. INDICATIONS : Evaluate for pneumothorax, pneumonia and communicable diseases. Pre-op for knee surgery. MEDICAL HISTORY : Hypertension. SURGICAL HISTORY : Shoulder surgery. ENCOUNTER: Initial ACUITY: 1 day PAIN SCORE: 0/10 LOCATION: Bilateral chest FINDINGS: PA and lateral views of the chest demonstrate the lungs to be symmetrically aerated without evidence of mass, infiltrate or effusion. The cardiomediastinal contours are unremarkable. Osseous structure s demonstrate a left shoulder arthroplasty but are otherwise intact. CONCLUSION: 1. No acute cardiopulmonary findings. 2. Incidental lobe of left shoulder arthroplasty. Gabriele Galeano MD on November 15, 2016 at 14:07 Board Certified Radiologist. This report was verified electronically.
[2016-11-15 14:19] LABS: BICARBONATE 29.9 MEQ/L (21.0-32.0); POTASSIUM 4.3 MEQ/L (3.5-5.1)
--- NOTE | 2016-11-16 13:58 | EKG ---
Date Performed: 11/15/2016 Time Performed: 13:06:55 PTAGE: 76 years EKG: Sinus rhythm WITH FIRST DEGREE AV BLOCK POSSIBLE RIGHT VENTRICULAR CONDUCTION DELAY ABNORMAL ECG PREVIOUS TRACING : 11/14/2012 12.56 Compared to prior tracing no significant change DOCTOR: Rafy Llanes Interpretating Date/Time 11/16/2016 13:57:41
== END ==
LOC: CPRE 12:29
PROVIDERS: ATTEND Orthopaedic Surgery
DX: Z01.812 Encounter for preprocedural laboratory examination (principal); Z01.810 Encounter for preprocedural cardiovascular examination; Z01.811 Encounter for preprocedural respiratory examination; M17.11 Unilateral primary osteoarthritis, right knee; I44.0 Atrioventricular block, first degree
CPT/HCPCS: 36415; 71020; 80048; 81001; 85025; 85610; 93005

== ENCOUNTER 2017-02-15 22:08 | Emergency (ER) | payer MEDICARE, OTHER ==
[~2017-02-15] VITALS: Ht 180.3 cm; Wt 85.0 kg
[~2017-02-15 22:08] MED LIST changes: -ATEN-102 PO; -NAPR220T95 PO; -PERC5TAB12 PO; -XARE10TA PO
[2017-02-15 22:18] VITALS: BP 129/59; PULSE 77; RESP 18; RESP 20; TEMP 98.2; O2SAT 99
[2017-02-15 22:22] VITALS: BP 129/59; PULSE 77; RESP 16; TEMP 98.2; O2SAT 99
[2017-02-15] MEDS ORDERED: SODIUM CHLORIDE 0.9% FLUSH 10 ML FLUSH IV FLUSH PRN (22:45)
[2017-02-15] MEDS ORDERED: LIDOCAINE 1%/EPINEPHrine 1:100,000 SOLN 20 ML VIAL INFIL ONE (22:45)
[2017-02-15 22:58] LABS: AUTOMATED NEUTROPHIL # 6.2 TH/MM3 (1.8-7.7); BASOPHIL # 0.1 TH/MM3 (0-0.2); BASOPHIL % 1.2 % (0.0-2.0); EOSINOPHIL # 0.3 TH/MM3 (0-0.4); EOSINOPHIL % 2.3 % (0.0-4.0); HEMATOCRIT 40.4 % (39.0-51.0); HEMO FLAGS DIFF FINAL; LYMPH % 30.4 % (9.0-44.0); LYMPHOCYTE # 3.4 TH/MM3 (1.0-4.8); MEAN CORPUSCULAR HEMOGLOBIN 30.3 PG (27.0-34.0); MONO % 9.8 % (0.0-8.0); NEUT % 56.3 % (16.0-70.0); PLATELET COUNT 262 TH/MM3 (150-450); RED BLOOD COUNT 4.54 MIL/MM3 (4.50-5.90); RED CELL DISTRIBUTION WIDTH 13.3 % (11.6-17.2); WHITE BLOOD COUNT 11.1 TH/MM3 (4.0-11.0)
[2017-02-15 23:07] LABS: CHLORIDE 104 MEQ/L (98-107); POTASSIUM 3.5 MEQ/L (3.5-5.1); SODIUM (NA) 138 MEQ/L (136-145)
[2017-02-15 23:11] LABS: ANION GAP 10 MEQ/L (5-15); BICARBONATE 24.4 MEQ/L (21.0-32.0); BLOOD UREA NITROGEN 20 MG/DL (7-18)
[2017-02-15 23:13] LABS: APTT (PATIENT) 26.9 SEC (24.3-30.1); PROTHROMBIN TIME - PATIENT 10.5 SEC (9.8-11.6)
[2017-02-15 23:14] LABS: ALT (GPT) 17 U/L (12-78); AST (GOT) 17 U/L (15-37); GLOMERULAR FILTRATION RATE 90 ML/MIN (>89)
[2017-02-15 23:16] LABS: TOTAL BILIRUBIN ADULT 0.2 MG/DL (0.2-1.0)
[2017-02-15 23:17] LABS: ALKALINE PHOSPHATASE 80 U/L (45-117)
--- NOTE | 2017-02-15 23:26 | PD ---
HPI Chief Complaint: Fall Time Seen by Provider: 22:42 Travel History International Travel<30 days: No Contact w/Intl Traveler<30days: No Traveled to known affect area: No History of Present Illness HPI 76-year-old male brought in by ambulance from home after mechanical fall while drinking alcohol. The patient admits to drinking gin tonight. His is present upon my assessment and reports that the patient stumbled and fell forward. Patient recalls the fall. He has a noticeable laceration to his anterior nose without active bleeding. Cervical collar placed by EMS. Patient is having some mild facial pain. He is denying head neck or back pain. No pain in his upper or lower extremities. No chest pain or dyspnea. No abdominal pain. PFSH Past Medical History Cancer: No Cardiovascular Problems: No Diabetes: No Endocrine: No Genitourinary: Yes (FREQUENCY ) Hepatitis: No Hiatal Hernia: No Hypertension: Yes Immune Disorder: No Musculoskeletal: Yes (LEFT SHOULDER ) Neurologic: Yes (LEFT ELBOW, HAND AND FINGERS TINGLING) Psychiatric: No Reproductive: No Respiratory: No Thyroid Disease: No Past Surgical History Abdominal Surgery: Yes (LEFT INGUINAL HERNIA REPAIR ) AICD: No Body Medical Devices: NONE Cardiac Surgery: No Ear Surgery: No Eye Surgery: Yes (BILATERAL LASIK) Genitourinary Surgery: No Joint Replacement: Yes (LEFT SHOULDER) Oral Surgery: No Pacemaker: No Thoracic Surgery: No Other Surgery: Yes Social History Alcohol Use: Yes Tobacco Use: No Substance Use: No Allergies-Medications (Allergen,Severity, Reaction): Coded Allergies: No Known Allergies (Unverified , 02/15/17) Reported Meds & Prescriptions Reported Meds & Active Scripts Active Aspirin 325 Mg Tab 325 Mg PO BID Reported Vitamin D3 (Cholecalciferol) 1,000 Unit Tab 1,000 Units PO DAILY Metformin (Metformin HCl) 500 Mg Tab 500 Mg PO BIDPC With meals Atenolol 25 Mg Tab 75 Mg PO DAILY Review of Systems Except as stated in HPI: all other systems reviewed are Neg Physical Exam Narrative GENERAL: Well-developed, well-nourished, awake, alert, GCS 15, appears intoxicated, no apparent distress. SKIN: Focused skin assessment warm/dry. No shape laceration to anterior nose of moderate depth, mild venous oozing, no visible contaminants. HEAD: Normocephalic. Skin exam as above. EYES: Pupils equal, round, 3 mm, reactive to light. EOMI. No scleral icterus. No injection or drainage. ENT: Skin exam as above. No nasal bleeding or discharge. Mucous membranes pink and dry. NECK: Trachea midline. No JVD. Cervical collar in place. No midline cervical spine step-off or tenderness. CARDIOVASCULAR: Regular rate and rhythm. RESPIRATORY: No accessory muscle use. Clear to auscultation. Breath sounds equal bilaterally. GASTROINTESTINAL: Abdomen soft, non-tender, nondistended. Reducible umbilical hernia. MUSCULOSKELETAL: No obvious deformities. No clubbing. No cyanosis. No edema. NEUROLOGICAL: Awake and alert. No obvious cranial nerve deficits. Motor grossly within normal limits. Normal speech. No focal deficits. PSYCHIATRIC: Appears intoxicated. Data Data Last Documented VS Vital Signs Date Time Temp Pulse Resp B/P Pulse Ox O2 Delivery O2 Flow Rate FiO2 02/16/17 00:44 132/60 96 02/15/17 22:22 98.2 [address] Brain W/O Iv Contrast(Rout) (02/15/17 ) Ct Facial Bones W/O Iv Cont (02/15/17 ) Ct Cerv Spine W/O Contrast (02/15/17 ) Complete Blood Count With Diff (02/15/17 22:45) Comprehensive Metabolic Panel (02/15/17 22:45) Prothrombin Time / Inr (Pt) (02/15/17 22:45) Act Partial Throm Time (Ptt) (02/15/17 22:45) Iv Access Insert/Monitor (02/15/17 22:45) Ecg Monitoring (02/15/17 22:45) Oximetry (02/15/17 22:45) Sodium Chloride 0.9% Flush (Ns Flush) (02/15/17 22:45) Lidocai-Epi 1%-1:100,000 Inj (Xylocaine- (02/15/17 22:45) Alcohol (Ethanol) (02/15/17 23:05) Electrocardiogram (02/15/17 ) Labs Laboratory Tests Test 02/15/17 22:45 White Blood Count 11.1 TH/MM3 Red Blood Count 4.54 MIL/MM3 Hemoglobin 13.8 GM/DL Hematocrit 40.4 % Mean Corpuscular Volume 89.0 FL Mean Corpuscular Hemoglobin 30.3 PG Mean Corpuscular Hemoglobin 34.0 % Concent Red Cell Distribution Width 13.3 % Platelet Count 262 TH/MM3 Mean Platelet Volume 9.0 FL Neutrophils (%) (Auto) 56.3 % Lymphocytes (%) (Auto) 30.4 % Monocytes (%) (Auto) 9.8 % Eosinophils (%) (Auto) 2.3 % Basophils (%) (Auto) 1.2 % Neutrophils # (Auto) 6.2 TH/MM3 Lymphocytes # (Auto) 3.4 TH/MM3 Monocytes # (Auto) 1.1 TH/MM3 Eosinophils # (Auto) 0.3 TH/MM3 Basophils # (Auto) 0.1 TH/MM3 CBC Comment DIFF FINAL Differential Comment Prothrombin Time 10.5 SEC Prothromb Time International 1.0 RATIO Ratio Activated Partial 26.9 SEC Thromboplast Time Sodium Level 138 MEQ/L Potassium Level 3.5 MEQ/L Chloride Level 104 MEQ/L Carbon Dioxide Level 24.4 MEQ/L Anion Gap 10 MEQ/L Blood Urea Nitrogen 20 MG/DL Creatinine 0.83 MG/DL Estimat Glomerular Filtration 90 ML/MIN Rate Random Glucose 104 MG/DL Calcium Level 8.8 MG/DL Total Bilirubin 0.2 MG/DL Aspartate Amino Transf 17 U/L (AST/SGOT) Alanine Aminotransferase 17 U/L (ALT/SGPT) Alkaline Phosphatase 80 U/L Total Protein 6.8 GM/DL Albumin 3.4 GM/DL Ethyl Alcohol Level 250 MG/DL [facility] Medical Decision Making Medical Screen Exam Complete: Yes Emergency Medical Condition: Yes Interpretation(s) EKG: Sinus, rate 82, normal axis, normal intervals, incomplete RBBB, no acute ischemic abnormality. Differential Diagnosis Alcohol intoxication, mechanical fall, facial bone fracture, intracranial trauma , cervical spine injury, Narrative Course EKG: Sinus, rate 82, normal axis, normal intervals, incomplete RBBB, no acute ischemic abnormality. CBC is essentially unremarkable. CMP is unremarkable. Alcohol level is 250. Nose laceration repaired. See procedure note. At approximately midnight at the end of my shift the patient was signed out to Dr. Park to follow up with imaging results and disposition. Procedures Procedure Narrative LACERATION LOCATION: Anterior nose LENGTH: 3 cm NUMBER OF STITCHES/PAMELA: 5 simple interrupted 5-0 Prolene sutures REPAIR: The area of the laceration was prepped with Betadine and sterilely draped. The laceration was infiltrated with 1 cc of 1% lidocaine with epinephrine. The wound was copiously irrigated and explored without evidence of foreign body, tendon injury or neurovascular injury. The wound was closed using 5 simple interrupted 5-0 Prolene sutures. This was a single layer repair. A sterile dressing was applied. The patient was advised to keep the dressing clean and dry. Patient tolerated the procedure well. Diagnosis Primary Impression: Laceration of nose Qualified Code: S01.21XA - Laceration of nose, initial encounter Additional Impressions: Alcohol intoxication Qualified Code: F10.920 - Alcoholic intoxication without complication Fall Qualified Code: W19.XXXA - Fall, initial encounter Closed head injury Qualified Code: S09.90XA - Closed head injury, initial encounter Referrals: Primary Care Physician 3 days Additional Instructions: Have sutures removed in 5 days. Follow-up with your primary care physician in the next 2-4 days. Return to the emergency department for worsening symptoms or any other concerns. Disposition: 01 DISCHARGE HOME Condition: Stable Abraham Liu MD Feb 15, 2017 23:26
--- NOTE | 2017-02-16 00:11 | RADRPT ---
EXAM DATE/TIME: 02/15/2017 23:47 [facility] COMPARISON: No previous studies available for comparison. INDICATIONS : Trauma. Fall. RADIATION DOSE: 58.96 CTDIvol (mGy) MEDICAL HISTORY : Hypertension. SURGICAL HISTORY : None. ENCOUNTER: Initial ACUITY: 1 day PAIN SCALE: 2/10 LOCATION: cranial TECHNIQUE: Multiple contiguous axial images were obtained of the head. Using automated exposure control and adj ustment of the mA and/or kV according to patient size, radiation dose was kept as low as reasonably a chievable to obtain optimal diagnostic quality images. DICOM format image data is available electro nically for review and comparison. FINDINGS: CEREBRUM: The ventricles, sulci, and basal cisterns are prominent characteristic of moderate severity central c ortical atrophy. No evidence of midline shift, mass lesion, hemorrhage or acute infarction. No extr a-axial fluid collections are seen. POSTERIOR FOSSA: The cerebellum and brainstem are intact. The 4th ventricle is midline. The cerebellopontine angle i s unremarkable. EXTRACRANIAL: There is opacification of the left maxillary sinus without expansion. The visualized portion of the orbits is intact. SKULL: The calvaria is intact. No evidence of skull fracture. CONCLUSION: 1. No acute findings in the brain. Moderate severity atrophy. 2. Left maxillary sinus disease. Oz Alamo MD on February 16, 2017 at 0:08 Board Certified Radiologist. This report was verified electronically.
--- NOTE | 2017-02-16 00:14 | RADRPT ---
EXAM DATE/TIME: 02/15/2017 23:47 [facility] COMPARISON: No previous studies available for comparison. INDICATIONS : Trauma. Fall. RADIATION DOSE: 20.52 CTDIvol (mGy) MEDICAL HISTORY : Hypertension. SURGICAL HISTORY : None. ENCOUNTER: Initial ACUITY: 1 day PAIN SCORE: 2/10 LOCATION: facial TECHNIQUE: Volumetric scanning of the facial bones was performed. Using automated exposure control and adjustme nt of the mA and/or kV according to patient size, radiation dose was kept as low as reasonably achiev able to obtain optimal diagnostic quality images. DICOM format image data is available electronicall y for review and comparison. FINDINGS: There is complete opacification of the left maxillary sinus with intact sinus wall. Infraorbital rim is intact. There is widening of the ostiomeatal outflow tract suggesting some bony resorption of th e infundibulum. Mild nasal septal deviation towards the left and small right giselle bullosa. No facial bone fractures seen. The nasal bone, zygomatic arches, infraorbital rim, mandible, and pte rygoids are intact. CONCLUSION: 1. No facial bone fracture seen. 2. Left maxillary sinus disease. Oz Alamo MD on February 16, 2017 at 0:10 Board Certified Radiologist. This report was verified electronically.
--- NOTE | 2017-02-16 00:18 | PD ---
Physical Exam Date Seen by Provider: Feb 16, 2017 Time Seen by Provider: 00:16 Narrative accepted in transfer of care from Dr Liu Data Data Last Documented VS Vital Signs Date Time Temp Pulse Resp B/P Pulse Ox O2 Delivery O2 Flow Rate FiO2 02/15/17 22:22 98.2 77 16 129/[address] Brain W/O Iv Contrast(Rout) (02/15/17 ) Ct Facial Bones W/O Iv Cont (02/15/17 ) Ct Cerv Spine W/O Contrast (02/15/17 ) Complete Blood Count With Diff (02/15/17 22:45) Comprehensive Metabolic Panel (02/15/17 22:45) Prothrombin Time / Inr (Pt) (02/15/17 22:45) Act Partial Throm Time (Ptt) (02/15/17 22:45) Iv Access Insert/Monitor (02/15/17 22:45) Ecg Monitoring (02/15/17 22:45) Oximetry (02/15/17 22:45) Sodium Chloride 0.9% Flush (Ns Flush) (02/15/17 22:45) Lidocai-Epi 1%-1:100,000 Inj (Xylocaine- (02/15/17 22:45) Alcohol (Ethanol) (02/15/17 23:05) Electrocardiogram (02/15/17 ) Labs Laboratory Tests Test 02/15/17 22:45 White Blood Count 11.1 TH/MM3 Red Blood Count 4.54 MIL/MM3 Hemoglobin 13.8 GM/DL Hematocrit 40.4 % Mean Corpuscular Volume 89.0 FL Mean Corpuscular Hemoglobin 30.3 PG Mean Corpuscular Hemoglobin 34.0 % Concent Red Cell Distribution Width 13.3 % Platelet Count 262 TH/MM3 Mean Platelet Volume 9.0 FL Neutrophils (%) (Auto) 56.3 % Lymphocytes (%) (Auto) 30.4 % Monocytes (%) (Auto) 9.8 % Eosinophils (%) (Auto) 2.3 % Basophils (%) (Auto) 1.2 % Neutrophils # (Auto) 6.2 TH/MM3 Lymphocytes # (Auto) 3.4 TH/MM3 Monocytes # (Auto) 1.1 TH/MM3 Eosinophils # (Auto) 0.3 TH/MM3 Basophils # (Auto) 0.1 TH/MM3 CBC Comment DIFF FINAL Differential Comment Prothrombin Time 10.5 SEC Prothromb Time International 1.0 RATIO Ratio Activated Partial 26.9 SEC Thromboplast Time Sodium Level 138 MEQ/L Potassium Level 3.5 MEQ/L Chloride Level 104 MEQ/L Carbon Dioxide Level 24.4 MEQ/L Anion Gap 10 MEQ/L Blood Urea Nitrogen 20 MG/DL Creatinine 0.83 MG/DL Estimat Glomerular Filtration 90 ML/MIN Rate Random Glucose 104 MG/DL Calcium Level 8.8 MG/DL Total Bilirubin 0.2 MG/DL Aspartate Amino Transf 17 U/L (AST/SGOT) Alanine Aminotransferase 17 U/L (ALT/SGPT) Alkaline Phosphatase 80 U/L Total Protein 6.8 GM/DL Albumin 3.4 GM/DL Ethyl Alcohol Level 250 MG/DL [facility] Medical Record Reviewed: Yes Supervised Visit with JAE: No Interpretation(s) a, elevated Last Impressions Maxillofacial CT 02/15/17 0000 Signed Impressions: Service Date/Time: Wednesday, February 15, 2017 23:47 - CONCLUSION: 1. No facial bone fracture seen. 2. Left maxillary sinus disease. Oz Alamo MD Head CT 02/15/17 0000 Signed Impressions: Service Date/Time: Wednesday, February 15, 2017 23:47 - CONCLUSION: 1. No acute findings in the brain. Moderate severity atrophy. 2. Left maxillary sinus disease. Oz Alamo MD Cervical Spine CT 02/15/17 0000 Signed Impressions: Service Date/Time: Wednesday, February 15, 2017 23:47 - CONCLUSION: 1. No evidence of fracture. 2. Advanced diffuse degenerative changes throughout the cervical spine with interspace narrowing greatest at C5-6 and C6-7 and with associated anterolisthesis at C4-5. There is also fusion of the upper lateral masses bilaterally at C3-4 and partial fusion across the disc space at C3-4. Oz Alamo MD CBC & BMP Diagram 02/15/17 22:45 Vital Signs Date Time Temp Pulse Resp B/P Pulse Ox O2 Delivery O2 Flow Rate FiO2 02/15/17 22:22 98.2 77 16 129/59 99 Room Air 02/15/17 22:22 16 99 Room Air 02/15/17 22:18 98.2 77 18 129/59 99 Room Air 02/15/17 22:18 98.2 77 20 129/59 99 Differential Diagnosis accepted in transfer of care from Dr Liu; please refer to his dictation Narrative Course accepted in transfer of care from Dr Liu; follow up on diagnostics and disposition CT brain noncontrast CT cervical spine noncontrast CT facial bones noncontrast per reading radiologist Dr. Alamo no acute abnormality no acute bony injury or fracture evidence of left maxillary sinus disease. Patient this time is stable to be discharged in the care of his . Patient is identified to have alcohol intoxication but spouse is at bedside and is able to be responsible for patient. Laceration has been repaired by Dr. Liu. No evidence for fracture according to imaging results per reading radiologist. Patient is encouraged to abstain from alcohol consumption. Diagnosis Primary Impression: Laceration of nose Qualified Code: S01.21XA - Laceration of nose, initial encounter Additional Impressions: Alcohol intoxication Qualified Code: F10.920 - Alcoholic intoxication without complication Closed head injury Qualified Code: S09.90XA - Closed head injury, initial encounter Fall Qualified Code: W19.XXXA - Fall, initial encounter Referrals: Primary Care Physician 3 days Patient Instructions: General Instructions Additional Instruction: Have sutures removed in 5 days. Follow-up with your primary care physician in the next 2-4 days. Return to the emergency department for worsening symptoms or any other concerns. Disposition: 01 DISCHARGE HOME Condition: Stable Maxine Park MD Feb 16, 2017 00:17
--- NOTE | 2017-02-16 00:19 | RADRPT ---
EXAM DATE/TIME: 02/15/2017 23:47 [facility] COMPARISON: No previous studies available for comparison. INDICATIONS : Trauma. Fall. RADIATION DOSE: 26.56 CTDIvol (mGy) MEDICAL HISTORY : Hypertension. SURGICAL HISTORY : None. ENCOUNTER: Initial ACUITY: 1 day PAIN SCALE: 2/10 LOCATION: neck TECHNIQUE: Volumetric scanning of the cervical spine was performed. Multiplanar reconstructions in the sagittal, coronal and oblique axial planes were performed. Using automated exposure control and adjustment o f the mA and/or kV according to patient size, radiation dose was kept as low as reasonably achievable to obtain optimal diagnostic quality images. DICOM format image data is available electronically f or review and comparison. FINDINGS: There is straightening of the cervical lordosis. 2 mm anterolisthesis at C45. There is partial fusi on at C3-4. Advanced degenerative degenerative changes with marked narrowing of the C5-6 interspace and prominent anterior and posterior osteophytes. Moderate severe degenerative changes at C6-7. The re is fusion of the lateral masses bilaterally at C3-4. Advanced degenerative changes are present in the facet joints throughout the cervical spine including subchondral cysts. Multilevel neural marianne inal stenosis. The atlantoaxial articulation is intact. C2-C3: No fracture seen. Moderate bilateral bony neuroforaminal stenosis. C3-C4: No fracture seen. Mild bilateral bony neural foraminal stenosis. C4-C5: No fracture seen. Moderate bilateral bony neural foraminal stenosis. C5-C6: No fracture seen. Moderate bilateral bony neural foraminal stenosis. C6-C7: No fracture seen. The neural foramina are patent. C7-T1: No fracture seen. The neural foramina are patent. CONCLUSION: 1. No evidence of fracture. 2. Advanced diffuse degenerative changes throughout the cervical spine with interspace narrowing grea test at C5-6 and C6-7 and with associated anterolisthesis at C4-5. There is also fusion of the upper lateral masses bilaterally at C3-4 and partial fusion across the disc space at C3-4. Oz Alamo MD on February 16, 2017 at 0:12 Board Certified Radiologist. This report was verified electronically.
[2017-02-16 00:44] VITALS: BP 132/60
--- NOTE | 2017-02-17 08:36 | EKG ---
Date Performed: 02/15/2017 Time Performed: 23:33:33 PTAGE: 76 years EKG: Sinus rhythm WITH FIRST DEGREE AV BLOCK INCOMPLETE RIGHT BUNDLE BRANCH BLOCK NON-SPECIFIC ST/T AWVE CHANGES PREVIOUS TRACING : 11/15/2016 13.06 Compared to prior tracing no significant change DOCTOR: Lei Cervantes Interpretating Date/Time 02/17/2017 08:34:51
== END 2017-02-16 01:03 | disposition home or self-care (01) ==
LOC: PHED 22:08
DX: S01.21XA Laceration without foreign body of nose, initial encounter (principal); F10.129 Alcohol abuse with intoxication, unspecified; Y90.8 Blood alcohol level of 240 mg/100 ml or more; I10 Essential (primary) hypertension; J32.0 Chronic maxillary sinusitis; I44.0 Atrioventricular block, first degree; I45.10 Unspecified right bundle-branch block; W01.0XXA Fall on same level from slipping, tripping and stumbling without subsequent striking against object, initial encounter; Y93.89 Activity, other specified; Y92.9 Unspecified place or not applicable; Z79.82 Long term (current) use of aspirin; R20.2 Paresthesia of skin
CPT/HCPCS: 12013; 70450; 70486; 72125; 80053; 80307; 85025; 85610; 85730; 93005